=== PATIENT | female | born 1990 | race Caucasian/White ===

== ENCOUNTER 2024-11-12 09:24 | Emergency (ER) | payer BC, SELFPAY ==
[2024-11-12 09:24] VITALS: BMI 50.4
[2024-11-12 09:27] VITALS: BP 159/103
[2024-11-12] MEDS: TORADOL 30 MG IV (10:12)
[2024-11-12] MEDS: DUONEB 3 ML INH (10:12)
[2024-11-12] MEDS: NSS 1000 IV (10:13)
--- NOTE | 2024-11-12 10:17 | ED.GENMED ---
History of Present Illness
General
Chief Complaint: Cold/Flu/URI Symptoms
Source: patient
Exam Limitations: none
Time Seen by Provider: 11/12/24 09:34
Nursing documentation reviewed up to this point in time: agreed with
History of Present Illness
History of Present Illness:
34-year-old female presents with fatigue shortness of breath sharp right-sided chest pain mid upper abdominal pain symptoms abdominal for a month seen at the urgent care multiple times treated with doxycycline Zithromax to course of Medrol Dosepak
and then higher dose of steroids did use an inhaler with some relief of her symptoms no history of DVT PE still has her gallbladder, never had a fever but did have productive sputum she is frustrated that her symptoms are getting better she did have
some diarrhea a few days ago, she feels fatigued
Past History
Past History
ED Past Medical History: Negative HTN or NIDDM
ED Past Surgical History: and Orthopedic; Negative Appendectomy or Cholecystectomy
Social History
Tobacco: Non-smoker
Alcohol: None
Drug: None
Personal:
Living: with family
Employment: Employed
Review of Systems
Review of Systems
All Other Systems: Not applicable
Constitutional: Reports fatigue; Denies fever
Respiratory: Reports trouble breathing; Denies cough
Cardiac: Denies syncope
ABD/GI: Reports abdominal pain and diarrhea
: Reports no symptoms
Musculoskeletal: Reports no symptoms
Neurological: Reports no symptoms
Endocrine: Reports no symptoms
Phy Exam
Physical Exam
Physical Exam:
Physical Exam
General: no apparent distress, not acutely ill
Neck: Lips are dry
Heart: s1/s2 regular rate and rhythm, no murmur. equal radial pulses.
Lungs: no acute respiratory distress. Moderate reproducible pain without crepitance in the right rib cage
Abdomen: Soft mild epigastric tenderness no lower abdominal tender
Neuro: alert and oriented. no focal neurological deficits
Skin: no rash
Psychiatric: well kept. interactive and cooperative
Extremities: no edema. no calf tenderness.
Course
Orders/Labs/Results
Orders:
Orders
11/12/24 10:03
CT Chest PE Study Urgent
Comment:
Reason For Exam: pain sob
0.9% Sodium Chloride 1000 ml [Nss] 1,000 ml IV BOLUS
Ipratropium/Albuterol Sulfate [Duoneb] 3 ml INH R NOW STA
Ketorolac [Toradol] 30 mg IV NOW STA
Test Result ONCE
11/12/24 10:11
Complete Blood Count/With Diff Urgent
Comprehensive Metabolic Panel Urgent
HCG, Serum Qualitative Screen Urgent
Lipase Urgent
Magnesium Urgent
TSH Urgent
11/12/24 10:20
US Abdomen Complete/Upper Urgent
Comment:
Reason For Exam: pain
11/12/24 13:18
Dexamethasone Sod Phosphate [Decadron] 10 mg IV NOW STA
Pantoprazole [Protonix IV] 40 mg IV NOW STA
diazePAM [Valium Injection] 5 mg IV NOW STA
11/12/24 13:19
Incentive Spirometry [Rx Incentive Spirometry] [RESP] Urgent
Frequency: q1h while awake
Abnormal Lab Results
11/12/24
10:11
WBC 13.0 H 10^3/uL
(4.8-10.8)
MCV 79.5 L fL
(81.0-99.0)
MCH 25.2 L pg
(27.0-31.0)
MCHC 31.7 L g/dL
(33.0-37.0)
RDW 14.6 H %
(11.5-14.5)
Abs Immat Gran (auto) 0.1 H 10^3/uL
(0-0.05)
Absolute Neuts (auto) 9.4 H 10^3/uL
(1.4-6.5)
Absolute Monos (auto) 1.0 H 10^3/uL
(0.1-0.6)
Immature Gran % 0.6 H %
(0-0.5)
Lymphocytes % 18.0 L %
(20.5-51.1)
ALT 46 H U/L
(0-35)
11/12/24 10:11
11/12/24 10:11
Vital Signs
Initial and Last Documented VS:
Initial Vital Signs
Temp Pulse Resp BP Pulse Ox
98.5 F 98 18 159/103 98
11/12/24 09:27 11/12/24 09:27 11/12/24 09:27 11/12/24 09:27 11/12/24 09:27
Last Documented Vital Signs
Temp Pulse Resp BP Pulse Ox
98.5 F 91 16 125/68 97
11/12/24 09:27 11/12/24 11:33 11/12/24 12:00 11/12/24 11:24 11/12/24 11:33
MDM/Problems Addressed
Differential Diagnosis Includes:
Pleurisy pneumonia dehydration pancreatitis biliary colic PE
MDM/Problems Addressed:
Fatigue right-sided chest pain abdominal pain diarrhea
*Radiology
Radiology exam reviewed: radiology read reviewed
*Pulse Oximetry
Patient hypoxic: no
*Customs Manager Interpretation
Rate: Customs Manager- N/A
*Critical Care Note
Total Time (30-74mins, 75-104mins- exclusive of procedures): Not Applicable
Update Note
Update Note:
Update, workup noted reviewed with the patient she is feeling better though still has some reproducible pain in her right costal margin will treat for pleurisy incentive spirometer muscle relaxants NSAIDs PPI
ED Attending Note
-
Portions of this chart may have been created with voice recognition software.� Occasional wrong word or��sound alike� substitutions may have occurred due to the inherent limitations of voice recognition software.
Discharge Plan
Departure
Patient Disposition: Home (Routine Discharge)
Date of Disposition: 11/12/24
Time of Disposition: 13:37
Patient with high blood pressure during this ER visit?: No
Condition: Good
Covid-19: Not Applicable
Discharge Problem:
Pleurisy
Instructions: Pleuritic Chest Pain ED
Prescriptions:
New
diazepam [Valium] 5 mg tablet
5 mg PO TID PRN (Reason: muscle spasm) Qty: 14 0RF
naproxen [Naprosyn] 500 mg tablet
500 mg PO Q12H Qty: 20 0RF
pantoprazole [Protonix] 40 mg tablet,delayed release (DR/EC)
40 mg PO DAILY Qty: 30 0RF
Referrals:
NONE,* [Family Provider] -
Mc Roe DO [[facility]] - Follow up in 1 week
Stand Alone Forms: Return to Work
Activity Restrictions/Additional Instructions:
Return to the ER for worsening symptoms or any other concerns
Interventions
Interventions:
*Risk Screen - Suicide Last Done: 11/12/24 09:27
*General Assessment Last Done: 11/12/24 09:27
*Neglect/Abuse Screening Last Done: 11/12/24 09:27
*ED COVID-19 Vaccine History Last Done: 11/12/24 09:27
ED- Pulmonary Assessment Last Done: 11/12/24 09:34
Discharge Date and Time
Print Language: GABONESE
[2024-11-12 10:24] LABS: % Basophils 0.5 % (0-2); % Eosinophils 1.9 % (0-6); % Immature Granulocytes 0.6 % (0-0.5); % Monocytes 7.3 % (1.7-9.3); % Neutrophils 71.7 % (42.2-75.2); Absolute Basophils 0.1 10^3/uL (0-0.2); Absolute Eosinophils 0.3 10^3/uL (0-0.7); Absolute Immature Granulocytes 0.1 10^3/uL (0-0.05); Absolute Lymphocytes 2.3 10^3/uL (1.2-3.4); Absolute Neutrophils 9.4 10^3/uL (1.4-6.5); Hematocrit 40.7 % (37.0-47.0); Hemoglobin 12.9 g/dL (12.0-16.0); Mean Corp Hgb Conc. 31.7 g/dL (33.0-37.0); Mean Corpuscular Hgb 25.2 pg (27.0-31.0); Mean Corpuscular Volume 79.5 fL (81.0-99.0); Mean Platelet Volume 9.8 fL (7.4-10.4); Nucleated Red Blood Cells % 0 %; Platelet Count 325 10^3/uL (130-400); Red Blood Cell Count 5.12 10^6/uL (4.20-5.40); Red Cell Dist. Width 14.6 % (11.5-14.5)
[2024-11-12 10:34] LABS: HCG, Serum Qualitative Screen Negative
[2024-11-12 10:42] LABS: ALT (SGPT) 46 U/L (0-35); AST (SGOT) 34 U/L (14-36); Albumin 4.1 g/dl (3.5-5.0); Alkaline Phosphatase 92 U/L (38-126); Blood Urea Nitrogen 15 mg/dl (7-17); Calcium 8.9 mg/dl (8.4-10.2); Carbon Dioxide 27 mmol/L (22-30); Chloride 101 mmol/L (98-107); Estimated Creatinine Clearance > 125 ml/min; Glucose 95 mg/dl (70-99); Magnesium 2.2 mg/dl (1.6-2.3); Potassium 3.5 mmol/L (3.5-5.1); Sodium 138 mmol/L (135-145); Total Bilirubin 0.8 mg/dl (0.2-1.3); eGFR > 60.00
[2024-11-12 11:11] LABS: TSH 2.82 uIU/ml (0.47-4.68)
[2024-11-12 11:22] LABS: Lipase 62 U/L (23-300)
[2024-11-12 11:24] VITALS: BP 125/68
[2024-11-12] MEDS: VALIUM INJECTION 5 MG IV (13:24)
[2024-11-12] MEDS: PROTONIX IV 40 MG IV (13:24)
[2024-11-12] MEDS: DECADRON 10 MG IV (13:25)
[2024-11-12 13:58] VITALS: BP 127/78
== END 2024-11-12 14:13 | disposition home or self-care (01) ==
LOC: EMR 09:24
PROVIDERS: EMERGENCY PHYSICIAN Emergency Medicine
DX: R09.1 Pleurisy (principal); Z90.49 Acquired absence of other specified parts of digestive tract
CPT/HCPCS: 99284; 94640; 96374; 96375; 96361; 71275; 76700; 80053; 83690; 83735; 84443; 84703; 85025; Q9967